=== PATIENT | female | born 1970 | race African-American/Black ===

== ENCOUNTER 2017-02-13 04:02 | Inpatient (IN) | payer BC, OTHER ==
[~2017-02-13] VITALS: Ht 160 cm; Wt 127.6 kg
[2017-02-13 04:57] LABS: HEMATOCRIT 41.5 % (36.0-46.0); MCH 20.6 PG (29.0-34.0); MCHC 30.4 G/DL (30.0-36.0); MCV 67.9 FL (83-99); MEAN PLAT.VOLUME 8.7 uM^3 (9.5-12.4); PLATELET COUNT 347 K/uL (156-360); RBC DIS.WIDTH-CV 15.4 % (11.8-14.6); RBC DIS.WIDTH-SD 35.8 % (39-53); RED BLOOD COUNT 6.11 M/uL (3.80-5.20); WHITE BLOOD COUNT 8.8 K/uL (4.1-10.2)
[2017-02-13 05:03] LABS: CHLORIDE 98 mEq/L (99-109); POTASSIUM 3.4 mEq/L (3.7-5.4); SODIUM 143 mEq/L (136-147)
[2017-02-13 05:05] LABS: GLUCOSE 191 mg/dL (70-99)
[2017-02-13 05:06] LABS: ANION GAP 14 MEQ/L (2-14)
[2017-02-13 05:07] LABS: TOTAL BILIRUBIN 0.5 mg/dL (0.0-1.0)
[2017-02-13 05:09] LABS: ALKALINE PHOSPHATASE 59 IU/L (3-129); GFR ESTIMATE (CALCULATED) > 59 mL/min/
[2017-02-13 05:10] LABS: UREA NITROGEN (BUN) 16 mg/dL (9-23)
[2017-02-13 05:12] LABS: LIPASE 17 U/L (1.0-51.0)
[2017-02-13 06:41] LABS: TROP-I INTERPRETATION NEGATIVE; TROPONIN-I < 0.01 ng/mL (0.0-0.30)
[2017-02-13 08:35] LABS: Estimated Average Glucose 146 mg/dL (70-123); HEMOGLOBIN A1c (GLYCOHEMOGLOB) 6.7 % HGB (Below 5.7)
[2017-02-13 12:52] LABS: POINT-OF-CARE METER ID UU13113675
[2017-02-13 14:10] VITALS: BP 133/95
[2017-02-13] MEDS ORDERED: JANUVIA100 MG PO (14:55)
[2017-02-13] MEDS ORDERED: LISINOPRIL-HCT1 EAC3 PO (14:55)
[2017-02-13] MEDS ORDERED: WOMEN'S DAILY1 EACH PO (14:56)
[2017-02-13] MEDS ORDERED: METFORMIN HCL500 M1 PO (14:56)
[2017-02-13] MEDS ORDERED: VITAMIN D31000 UNI2 PO (14:57)
[2017-02-13] MEDS ORDERED: PROBIOTIC1 EAC1 PO (14:58)
[2017-02-13 16:05] VITALS: BP 128/72
[2017-02-13 19:00] VITALS: BP 133/64
[2017-02-14] VITALS (7 sets, daily range): BP systolic 116–185; BP diastolic 58–85
[2017-02-14 06:17] LABS: POINT-OF-CARE METER ID UU14162508; POINT-OF-CARE USER ID 609231305
[2017-02-14 06:47] LABS: HEMATOCRIT 36.8 % (36.0-46.0); MCH 20.9 PG (29.0-34.0); MCHC 29.6 G/DL (30.0-36.0); MCV 70.6 FL (83-99); MEAN PLAT.VOLUME 8.9 uM^3 (9.5-12.4); PLATELET COUNT 319 K/uL (156-360); RBC DIS.WIDTH-CV 15.4 % (11.8-14.6); RBC DIS.WIDTH-SD 38.6 % (39-53); RED BLOOD COUNT 5.21 M/uL (3.80-5.20); WHITE BLOOD COUNT 8.7 K/uL (4.1-10.2)
[2017-02-14 06:51] LABS: ANION GAP 6 MEQ/L (2-14); CHLORIDE 109 MEQ/L (99-109); GFR ESTIMATE (CALCULATED) > 59 mL/min/; GLUCOSE 179 mg/dL (70-99); SAMPLE HEMOLYSIS CHECK 0; SAMPLE ICTERIC CHECK 0; SAMPLE LIPEMIA CHECK 0; SODIUM 144 MEQ/L (136-147); UREA NITROGEN (BUN) 15 mg/dL (9-23)
[2017-02-14 06:52] LABS: POTASSIUM 4.4 MEQ/L (3.7-5.4)
[2017-02-15 04:26] VITALS: BP 128/72
[2017-02-15 05:59] LABS: POINT-OF-CARE METER ID UU14162508; POINT-OF-CARE USER ID AHSUCEG
[2017-02-15 06:12] VITALS: BP 144/70
[2017-02-15 07:00] LABS: HEMATOCRIT 32.3 % (36.0-46.0); MCHC 29.1 G/DL (30.0-36.0); MCV 72.3 FL (83-99); MEAN PLAT.VOLUME 8.8 uM^3 (9.5-12.4); PLATELET COUNT 245 K/uL (156-360); RBC DIS.WIDTH-CV 15.5 % (11.8-14.6); RBC DIS.WIDTH-SD 39.9 % (39-53); RED BLOOD COUNT 4.47 M/uL (3.80-5.20); WHITE BLOOD COUNT 8.2 K/uL (4.1-10.2)
[2017-02-15 07:16] LABS: ANION GAP 4 MEQ/L (2-14); CHLORIDE 111 MEQ/L (99-109); GFR ESTIMATE (CALCULATED) > 59 mL/min/; GLUCOSE 155 mg/dL (70-99); POTASSIUM 4.8 MEQ/L (3.7-5.4); SAMPLE HEMOLYSIS CHECK 0; SAMPLE ICTERIC CHECK 0; SAMPLE LIPEMIA CHECK 0; SODIUM 146 MEQ/L (136-147); UREA NITROGEN (BUN) 10 mg/dL (9-23)
[2017-02-15 08:08] VITALS: BP 176/88
[2017-02-15 11:30] VITALS: BP 168/78
[2017-02-15 12:31] LABS: POINT-OF-CARE METER ID UU14162508
[2017-02-15 15:40] VITALS: BP 185/81
[2017-02-15 16:57] LABS: POINT-OF-CARE METER ID UU14162508
[2017-02-15 20:50] VITALS: BP 181/80
[2017-02-16 00:18] LABS: POINT-OF-CARE METER ID UU14162508
[2017-02-16 00:45] VITALS: BP 162/72
[2017-02-16 04:46] VITALS: BP 166/73
[2017-02-16 06:45] LABS: POINT-OF-CARE METER ID UU14162508
[2017-02-16 06:50] LABS: HEMATOCRIT 31.2 % (36.0-46.0); MCH 20.7 PG (29.0-34.0); MCHC 29.5 G/DL (30.0-36.0); MCV 70.3 FL (83-99); MEAN PLAT.VOLUME 8.5 uM^3 (9.5-12.4); PLATELET COUNT 279 K/uL (156-360); RBC DIS.WIDTH-CV 15.2 % (11.8-14.6); RBC DIS.WIDTH-SD 38.3 % (39-53); RED BLOOD COUNT 4.44 M/uL (3.80-5.20); WHITE BLOOD COUNT 7.9 K/uL (4.1-10.2)
[2017-02-16 07:13] LABS: ANION GAP 6 MEQ/L (2-14); CHLORIDE 108 MEQ/L (99-109); GFR ESTIMATE (CALCULATED) > 59 mL/min/; GLUCOSE 165 mg/dL (70-99); POTASSIUM 4.1 MEQ/L (3.7-5.4); SAMPLE HEMOLYSIS CHECK 0; SAMPLE ICTERIC CHECK 0; SAMPLE LIPEMIA CHECK 0; SODIUM 143 MEQ/L (136-147); UREA NITROGEN (BUN) 7 mg/dL (9-23)
[2017-02-16 07:30] VITALS: BP 151/85
[2017-02-16 11:34] VITALS: BP 166/81
[2017-02-16 13:52] LABS: POINT-OF-CARE METER ID UU14162508
[2017-02-16 15:10] VITALS: BP 156/76
[2017-02-16 20:15] VITALS: BP 180/86
[2017-02-16 23:21] LABS: POINT-OF-CARE METER ID UU14162508
[2017-02-17 00:02] VITALS: BP 158/82
[2017-02-17 03:03] VITALS: BP 186/88
[2017-02-17 09:22] VITALS: BP 130/79
[2017-02-17 10:14] LABS: HEMATOCRIT 31.1 % (36.0-46.0); MCHC 30.5 G/DL (30.0-36.0); MCV 68.8 FL (83-99); MEAN PLAT.VOLUME 8.6 uM^3 (9.5-12.4); NRBC (%) 0.2 /100 WBC (0-0); RBC DIS.WIDTH-CV 15.1 % (11.8-14.6); RBC DIS.WIDTH-SD 37.7 % (39-53); RED BLOOD COUNT 4.52 M/uL (3.80-5.20); WHITE BLOOD COUNT 8.6 K/uL (4.1-10.2)
[2017-02-17 10:22] LABS: PLATELET COUNT 365 K/uL (156-360)
[2017-02-17 10:48] LABS: ANION GAP 10 MEQ/L (2-14); CHLORIDE 107 MEQ/L (99-109); GFR ESTIMATE (CALCULATED) > 59 mL/min/; GLUCOSE 139 mg/dL (70-99); POTASSIUM 3.7 MEQ/L (3.7-5.4); SAMPLE HEMOLYSIS CHECK 0; SAMPLE ICTERIC CHECK 0; SAMPLE LIPEMIA CHECK 0; SODIUM 143 MEQ/L (136-147); UREA NITROGEN (BUN) 7 mg/dL (9-23)
[2017-02-17 16:00] VITALS: BP 177/82
[2017-02-17 19:42] VITALS: BP 160/78
[2017-02-18 00:15] VITALS: BP 160/68
[2017-02-18 04:05] VITALS: BP 158/72
[2017-02-18 07:33] LABS: ANION GAP 8 MEQ/L (2-14); CHLORIDE 106 MEQ/L (99-109); GFR ESTIMATE (CALCULATED) > 59 mL/min/; GLUCOSE 170 mg/dL (70-99); SAMPLE HEMOLYSIS CHECK 0; SAMPLE ICTERIC CHECK 0; SAMPLE LIPEMIA CHECK 0; SODIUM 142 MEQ/L (136-147); UREA NITROGEN (BUN) 7 mg/dL (9-23)
[2017-02-18 08:00] VITALS: BP 172/88
[2017-02-18 08:01] LABS: HEMATOCRIT 29.5 % (36.0-46.0); MCH 20.8 PG (29.0-34.0); MCHC 30.2 G/DL (30.0-36.0); MCV 69.1 FL (83-99); MEAN PLAT.VOLUME 8.4 uM^3 (9.5-12.4); NRBC (%) 0.3 /100 WBC (0-0); PLATELET COUNT 352 K/uL (156-360); RBC DIS.WIDTH-CV 15.3 % (11.8-14.6); RBC DIS.WIDTH-SD 37.6 % (39-53); RED BLOOD COUNT 4.27 M/uL (3.80-5.20); WHITE BLOOD COUNT 7.4 K/uL (4.1-10.2)
[2017-02-18 16:00] VITALS: BP 182/8
[2017-02-18 23:46] VITALS: BP 130/65
[2017-02-19 06:57] LABS: POINT-OF-CARE METER ID UU14162508
[2017-02-19 08:00] VITALS: BP 141/71
[2017-02-19] MEDS ORDERED: HYDROCODON-ACE1 EAC7 PO (09:57)
== END 2017-02-19 10:47 | disposition home or self-care (01) | DRG 330 ==
LOC: EME → EDBD 04:02 → EME 08:41 → SDC 08:41 → 2EAST 12:49 → 2SOUTH 12:49 → 2EAST 14:09
PROVIDERS: Emergency Medicine; Surgery
DX: K56.5 Intestinal adhesions [bands] with obstruction (postinfection) (principal); K80.10 Calculus of gallbladder with chronic cholecystitis without obstruction; Z68.43 Body mass index [BMI] 50.0-59.9, adult; E66.01 Morbid (severe) obesity due to excess calories; R18.8 Other ascites; E87.2 Acidosis; K82.8 Other specified diseases of gallbladder; E11.9 Type 2 diabetes mellitus without complications; I10 Essential (primary) hypertension; K56.7 Ileus, unspecified; G47.30 Sleep apnea, unspecified; Z91.19 Patient's noncompliance with other medical treatment and regimen; Z90.710 Acquired absence of both cervix and uterus
CPT/HCPCS: 71010; 74177; 80048; 80053; 81003; 82948; 83036; 83605; 83690; 84484; 84999; 85027; 88304; 88305; 88307; 93005; 94799; 99281; 99285; J0330; J1170; J1650; J1815; J1885; J2250; J2270; J2405; J2710; J3010; J7030; S0028

== ENCOUNTER → 2017-03-03 | Outpatient (CLI) | payer BC, OTHER ==
[~2017-03-03] MED LIST: HYDROCODON-ACE1 EAC7 PO; JANUVIA100 MG PO; LISINOPRIL-HCT1 EAC3 PO; METFORMIN HCL500 M1 PO; PROBIOTIC1 EAC1 PO; VITAMIN D31000 UNI2 PO; WOMEN'S DAILY1 EACH PO
== END | disposition home or self-care (01) ==
LOC: AMB 15:30
DX: Z53.9 Procedure and treatment not carried out, unspecified reason (principal)